=== PATIENT | male | born 1940 | race African-American/Black ===

== ENCOUNTER 2016-03-04 10:10 | Outpatient (CLI) | payer MEDICARE ==
[2016-03-04 13:32] LABS: Anion Gap 14 mmol/L (10-20); BUN (Urea Nitrogen) 12 mg/dL (8.4-25.7); Calc. Creatinine Clearance 0 mL/min (70-130); Calcium 8.9 mg/dL (7.8-10.44); Carbon Dioxide 26 mmol/L (23-31); Chloride 109 mmol/L (98-107); Estimated GFR-MDRD 65; LDL Cholesterol, Calculated 87 mg/dL
== END 2016-03-04 10:11 | disposition home or self-care (01) ==
LOC: NAVSJIPCSP 10:10
PROVIDERS: ATTEND Internal Medicine
DX: I11.9 Hypertensive heart disease without heart failure (principal); E78.5 Hyperlipidemia, unspecified; Z79.899 Other long term (current) drug therapy
CPT/HCPCS: 36415; 80048; 80061

== ENCOUNTER 2016-06-01 10:17 | Outpatient (CLI) | payer MEDICARE ==
[2016-06-01 12:58] LABS: #Eosinphils 0.5 thou/uL (0.0-0.7); #Lymphocytes 2.3 thou/uL (1.20-3.40); #Monocytes 0.6 thou/uL (0.11-0.59); #Neutrophils 4.5 thou/uL (1.40-6.50); %Basophils 0.6 % (0.0-1.0); %Eosinophils 6.5 % (0.0-10.0); %Lymphocytes 28.9 % (21.0-51.0); %Monocytes 7.8 % (0.0-10.0); %Neutrophils 56.2 % (42.0-75.0); Mean Corpuscular HGB CONC 33.3 g/dL (32.0-36.0); Mean Corpuscular Hemoglobin 30.1 pg (27.0-31.0); Mean Corpuscular Volume 90.5 fl (80.0-94.0); Mean Platelet Volume 8.1 fL (7.4-10.4); Platelet Count 230 thou/uL (130-400); RBC Distribution Width 14.1 % (11.5-14.5); Red Blood Cell (RBC) Count 3.99 mill/uL (4.70-6.10)
[2016-06-01 13:38] LABS: ALT (SGPT) 13 U/L (0-55); AST (SGOT) 14 U/L (5-34); Albumin 3.7 g/dL (3.4-4.8); Alkaline Phosphatase 126 U/L (40-150); Anion Gap 16 mmol/L (10-20); BUN (Urea Nitrogen) 12 mg/dL (8.4-25.7); Bilirubin, Total 0.5 mg/dL (0.2-1.2); Calc. Creatinine Clearance 0 mL/min (70-130); Calcium 8.9 mg/dL (7.8-10.44); Carbon Dioxide 25 mmol/L (23-31); Cardiac Risk 3.7 (Less than 4.5); Chloride 106 mmol/L (98-107); Cholesterol 146 mg/dL (< 200 Desired); Estimated GFR-MDRD 68; Globulin 3.8 g/dL (2.4-3.5); Glucose 82 mg/dL (83-110); HDL Cholesterol 39 mg/dL (>60 Neg Risk); LDL Cholesterol, Calculated 90 mg/dL; Potassium 4.1 mmol/L (3.5-5.1); Protein, Total 7.5 g/dL (5.8-8.1); Sodium 143 mmol/L (136-145); Triglycerides 86 mg/dL (Less than 150)
== END 2016-06-01 10:18 | disposition home or self-care (01) ==
LOC: NAVSJIPCSP 10:17
PROVIDERS: ATTEND Internal Medicine
DX: Z12.5 Encounter for screening for malignant neoplasm of prostate (principal); E78.5 Hyperlipidemia, unspecified; I11.9 Hypertensive heart disease without heart failure; J44.9 Chronic obstructive pulmonary disease, unspecified; Z79.899 Other long term (current) drug therapy
CPT/HCPCS: 36415; 80053; 80061; 85025; G0103

== ENCOUNTER 2016-06-07 08:24 | Outpatient (CLI) | payer MEDICARE ==
[2016-06-07 08:45] LABS: Bilirubin Negative (Negative); Blood, Urine Negative (Negative); Clarity Slightly Cloudy (Clear); Glucose, Urine (Dipstick) Negative (Negative); Leukocyte Large (Negative); Nitrite Negative (Negative); Protein, Urine (Dipstick) Negative (Neg-Trace)
[2016-06-07 09:24] LABS: Bacteria/HPF 3+ HPF (None Seen); Other Microscopic Description NO; RBC/HPF None Seen HPF (0-3); Squamous Epithelial None Seen HPF (0-3)
== END 2016-06-07 08:25 | disposition home or self-care (01) ==
LOC: NAV LABSP 08:24
PROVIDERS: ATTEND Internal Medicine
DX: Z12.5 Encounter for screening for malignant neoplasm of prostate (principal); J44.9 Chronic obstructive pulmonary disease, unspecified; I11.9 Hypertensive heart disease without heart failure; E78.5 Hyperlipidemia, unspecified; Z79.899 Other long term (current) drug therapy
CPT/HCPCS: 81003; 81015

== ENCOUNTER 2016-06-16 14:08 | Outpatient (CLI) | payer MEDICARE | END 2016-06-16 14:09 | disposition home or self-care (01) | LOC: NAVSJIPCSP 14:08 | PROVIDERS: ATTEND Internal Medicine | DX: Z12.5 Encounter for screening for malignant neoplasm of prostate (principal); J44.9 Chronic obstructive pulmonary disease, unspecified; I11.9 Hypertensive heart disease without heart failure; E78.5 Hyperlipidemia, unspecified; Z79.899 Other long term (current) drug therapy | CPT/HCPCS: 82274 ==

== ENCOUNTER 2016-08-18 07:59 | Outpatient (CLI) | payer MEDICARE ==
--- NOTE | 2016-08-18 09:06 | ULT ---
ULTRASOUND ABDOMINAL AORTA: Date: 08/18/16 HISTORY: Screening. COMPARISON: CT from 2008. FINDINGS: Proximal aorta measures 1.8 x 2.2 x 1.7 cm. The mid and distal aorta are not well seen due to body h abitus and bowel gas. IMPRESSION: Normal appearance of the proximal aorta, although the mid and distal aorta is not well seen due to b adair habitus. For screening purposes, patient may need to have a CT angiogram. POS: [id number]
== END 2016-08-18 08:00 | disposition home or self-care (01) ==
LOC: NAV ULT 07:59
PROVIDERS: ATTEND Internal Medicine
DX: Z13.6 Encounter for screening for cardiovascular disorders (principal)
CPT/HCPCS: 76775

== ENCOUNTER 2016-09-01 11:41 | Outpatient (CLI) | payer MEDICARE ==
[2016-09-01 13:56] LABS: #Basophils 0.1 thou/uL (0.0-0.2); #Eosinphils 0.5 thou/uL (0.0-0.7); #Lymphocytes 2.4 thou/uL (1.20-3.40); #Monocytes 0.5 thou/uL (0.11-0.59); #Neutrophils 3.9 thou/uL (1.40-6.50); %Basophils 0.7 % (0.0-1.0); %Eosinophils 6.9 % (0.0-10.0); %Lymphocytes 32.2 % (21.0-51.0); %Monocytes 6.9 % (0.0-10.0); %Neutrophils 53.4 % (42.0-75.0); Hemoglobin 11.7 g/dL (14.0-18.0); Mean Corpuscular HGB CONC 30.3 g/dL (32.0-36.0); Mean Corpuscular Hemoglobin 26.9 pg (27.0-31.0); Mean Corpuscular Volume 88.8 fl (80.0-94.0); Platelet Count 213 thou/uL (130-400); RBC Distribution Width 15.4 % (11.5-14.5); Red Blood Cell (RBC) Count 4.37 mill/uL (4.70-6.10); White Blood Cell (WBC) Count 7.3 thou/uL (4.8-10.8)
== END 2016-09-01 11:42 | disposition home or self-care (01) ==
LOC: NAVSJIPCSP 11:41
PROVIDERS: ATTEND Internal Medicine
DX: E78.5 Hyperlipidemia, unspecified (principal); D64.9 Anemia, unspecified
CPT/HCPCS: 36415; 80061; 82728; 83540; 83550; 85025

== ENCOUNTER 2023-05-20 13:49 | Emergency (ER) | payer MEDICARE ==
[2023-05-20 15:29] LABS: Bilirubin Negative (Negative); Blood, Urine Moderate (Negative); Glucose, Urine (Dipstick) Negative (Negative); Ketone, Urine Negative (Negative); Leukocyte Large (Negative); Nitrite Negative (Negative); Protein, Urine (Dipstick) 30 mg/dL (Neg-Trace); pH, Urine 7.5 (5.0-9.0)
[2023-05-20 15:32] LABS: CAUTI Indications for Culture Pelvic or flank pain; Clarity Hazy (Clear)
[2023-05-20 15:33] LABS: Bacteria/HPF 2+ HPF (None Seen)
[2023-05-20 15:34] LABS: Triple Phosphate Crystal 2+ HPF (None Seen); Urine Culture Reflex No No
[2023-05-20] MEDS ORDERED: Cephalexin 250 MG CAP ONE (15:59)
== END 2023-05-20 16:05 | disposition home or self-care (01) ==
LOC: NAV ERS 13:49
DX: N39.0 Urinary tract infection, site not specified (principal); K21.9 Gastro-esophageal reflux disease without esophagitis; E78.00 Pure hypercholesterolemia, unspecified; I10 Essential (primary) hypertension; J43.9 Emphysema, unspecified; Z87.891 Personal history of nicotine dependence; Z79.899 Other long term (current) drug therapy
CPT/HCPCS: 51701; 81001; 99283